=== PATIENT | male | born 1980 | race Caucasian/White ===

== ENCOUNTER 2023-01-03 14:44 | Emergency (ER) | payer OTHER ==
[~2023-01-03] VITALS: Ht 182.9 cm; Wt 79.4 kg
[2023-01-03 14:59] VITALS: BP 111/74
[2023-01-03] MEDS ORDERED: HYDR1TAB94 PO (16:02)
[2023-01-05] MEDS ORDERED: ESCI20 PO (14:52)
[2023-01-05] MEDS ORDERED: OLAN20 MM (14:54)
[2023-01-05] MEDS ORDERED: Lithium Carbon450 MG PO (14:54)
== END 2023-01-03 16:16 ==
LOC: ER 14:44
DX: S52.501A Unspecified fracture of the lower end of right radius, initial encounter for closed fracture (principal); S70.01XA Contusion of right hip, initial encounter; S50.311A Abrasion of right elbow, initial encounter; V00.131A Fall from skateboard, initial encounter; Y93.51 Activity, roller skating (inline) and skateboarding; Z88.0 Allergy status to penicillin; Z88.8 Allergy status to other drugs, medicaments and biological substances
CPT/HCPCS: 29105; 73080; 73110; 73502; 99283-25; A9270

== ENCOUNTER 2023-01-06 11:13 | Day surgery (SDC) | payer OTHER ==
[2023-01-06] VITALS (7 sets, daily range): BP systolic 121–130; BP diastolic 76–92
[~2023-01-06] VITALS: Ht 182.9 cm; Wt 81.1 kg
[~2023-01-06 11:13] MED LIST: ESCI20 PO; HYDR1TAB94 PO; Lithium Carbon450 MG PO; OLAN20 MM
== END 2023-01-06 15:30 | disposition home or self-care (01) ==
LOC: ORSCMMR 11:13
PROVIDERS: Orthopaedic Surgery
PROC: 0PSH04Z Reposition Right Radius with Internal Fixation Device, Open Approach (ICD-10-PCS; principal; 2023-01-06 12:30)
DX: S52.571A Other intraarticular fracture of lower end of right radius, initial encounter for closed fracture (principal); F31.9 Bipolar disorder, unspecified; F41.8 Other specified anxiety disorders; Z87.891 Personal history of nicotine dependence; Z79.899 Other long term (current) drug therapy
CPT/HCPCS: A9270; C1713; J0171; J0690; J1100; J1885; J2250; J2405; J2704; J3010; J7120